=== PATIENT | female | born 1980 | race Caucasian/White ===

== ENCOUNTER → 2018-09-03 | Outpatient (CLI) | payer MEDICAID | LOC: FIMAGING 14:42 | PROVIDERS: ATTEND Obstetrics & Gynecology | DX: O09.521 Supervision of elderly multigravida, first trimester (principal); O09.291 Supervision of pregnancy with other poor reproductive or obstetric history, first trimester; Z3A.13 13 weeks gestation of pregnancy ==

== ENCOUNTER → 2018-10-21 | Outpatient (CLI) | payer MEDICAID | LOC: FIMAGING 11:49 | PROVIDERS: ATTEND Obstetrics & Gynecology | DX: O09.522 Supervision of elderly multigravida, second trimester (principal); O34.219 Maternal care for unspecified type scar from previous cesarean delivery; O99.112 Other diseases of the blood and blood-forming organs and certain disorders involving the immune mechanism complicating pregnancy, second trimester; D68.2 Hereditary deficiency of other clotting factors; Z3A.20 20 weeks gestation of pregnancy; Z79.01 Long term (current) use of anticoagulants ==

== ENCOUNTER → 2018-11-28 | Outpatient (CLI) | payer MEDICAID | LOC: FIMAGING 14:32 | PROVIDERS: ATTEND Obstetrics & Gynecology | DX: O09.522 Supervision of elderly multigravida, second trimester (principal); Z3A.25 25 weeks gestation of pregnancy ==

== ENCOUNTER → 2019-01-07 | Outpatient (CLI) | payer MEDICAID | LOC: FIMAGING 13:31 | PROVIDERS: ATTEND Obstetrics & Gynecology | DX: O09.523 Supervision of elderly multigravida, third trimester (principal); O34.219 Maternal care for unspecified type scar from previous cesarean delivery; O99.340 Other mental disorders complicating pregnancy, unspecified trimester; F42.9 Obsessive-compulsive disorder, unspecified; Z3A.31 31 weeks gestation of pregnancy ==